=== PATIENT | male | born 2005 | race Caucasian/White ===

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

== ENCOUNTER 2025-05-26 12:50 | Emergency (ER) | payer BC, SELFPAY ==
[2025-05-26 13:00] VITALS: BP 156/90
--- NOTE | 2025-05-26 14:57 | ED.GENMED ---
History of Present Illness
General
Chief Complaint: DVT/Possible Blood Clot
Time Seen by Provider: 05/26/25 14:46
Nursing documentation reviewed up to this point in time: agreed with
History of Present Illness
History of Present Illness:
19-year-old male brought to the ER by mom for evaluation of swelling and pain to his left lower extremity which has been present since he had ACL repair last week. Patient has no prior personal history of venous thromboembolic disease. He has been
taking daily aspirin as recommended by his surgeon. He has been elevating his leg and applying ice as recommended along with wearing a compression stocking. Patient feels otherwise well but has been having pain in his anterior rizvi.
Review of Systems
Review of Systems
Allergies reviewed?: Yes
Phy Exam
Physical Exam
Physical Exam:
Patient is awake, alert, appears no acute distress, head is normocephalic atraumatic, left lower extremity is significantly swollen including a large effusion to the left knee in comparison to normal right knee, surgical incision is clean dry and
intact with Steri-Strips present, no surrounding erythema, no excessive warmth, no purulent drainage, no surrounding induration, 2+ edema present lower leg, 2+ DP pulse present left foot with brisk cap refill to the toes, compartments soft
Course
Orders/Labs/Results
Orders:
Orders
05/26/25 13:07
US Periph Venous LOWER Ext LT Urgent
Comment: ACL repair 1 week ago in [place]
Reason For Exam: swelling to lle
Ultrasound left lower extremity negative
Vital Signs
Initial and Last Documented VS:
Initial Vital Signs
Temp Pulse Resp BP Pulse Ox
98.3 F 81 18 156/90 98
05/26/25 13:00 05/26/25 13:00 05/26/25 13:00 05/26/25 13:00 05/26/25 13:00
Last Documented Vital Signs
Temp Pulse Resp BP Pulse Ox
98.3 F 81 18 156/90 98
05/26/25 13:00 05/26/25 13:00 05/26/25 13:00 05/26/25 13:00 05/26/25 13:00
MDM/Problems Addressed
Differential Diagnosis Includes:
Differential diagnosis to consider but not limited to postoperative swelling, DVT, along with other etiologies considered
*Pulse Oximetry
SaO2: 98
Oxygen Mode of Delivery: Room air
Patient hypoxic: no
*Critical Care Note
Total Time (30-74mins, 75-104mins- exclusive of procedures): Not Applicable
Update Note
Update Note:
I discussed with patient and mom present bedside no evidence for DVTs in her ultrasound. I discussed with them likely normal healing appearance to the lower extremity as there is no erythema, excessive warmth or fever. I discussed with patient
continued use of elevation, compression, and ice. Patient has appointment to see his surgeon next week, will follow-up with his doctor. He and mom have no questions at the current time.
ED Attending Note
-
Portions of this chart may have been created with voice recognition software.� Occasional wrong word or��sound alike� substitutions may have occurred due to the inherent limitations of voice recognition software.
Discharge Plan
Departure
Patient Disposition: Home (Routine Discharge)
Date of Disposition: 05/26/25
Time of Disposition: 14:51
Patient with high blood pressure during this ER visit?: No
Discharge Problem:
Left leg swelling
Instructions: Swelling
Prescriptions:
No Action
clindamycin HCl 300 mg capsule
300 mg PO TID Qty: 30 0RF
prednisone 10 mg Tablet
See Rx Instructions .ROUTE .COMPLEX Qty: 45 0RF
Rx Instructions:
Take By Mouth:
50 mg daily x3 days, 40 mg daily x3 days,
30 mg daily x3 days, 20 mg daily x3 days,
10 mg daily x3 days
Activity Restrictions/Additional Instructions:
Continue to elevate your leg and wear compression stockings along with using ice as recommended by your surgeon. Please follow-up with your surgeon next week as scheduled. Return to the ER for any concerns
Discharge Date and Time
Print Language: LAO
[2025-05-26 15:33] VITALS: BP 124/68
== END 2025-05-26 15:34 | disposition home or self-care (01) ==
LOC: EMR 12:50
PROVIDERS: EMERGENCY PHYSICIAN Emergency Medicine; FAMILY PHYSICIAN Pediatrics
DX: R22.42 Localized swelling, mass and lump, left lower limb (principal); Z79.82 Long term (current) use of aspirin; Z98.890 Other specified postprocedural states
CPT/HCPCS: 99284; 93971